=== PATIENT | female | born 1935 | race Caucasian/White ===

== ENCOUNTER 2017-12-19 15:38 | Outpatient (CLI) | payer MEDICARE, BC | END 2017-12-19 15:39 | disposition home or self-care (01) | LOC: BICRAD 15:38 | PROVIDERS: ATTEND Internal Medicine | DX: R06.00 Dyspnea, unspecified (principal) | CPT/HCPCS: 71046 ==

== ENCOUNTER 2018-01-08 10:11 | Outpatient (CLI) | payer MEDICARE, BC ==
[2018-01-08 10:49] LABS: Estimated GFR-MDRD - POC Greater than 90
[2018-01-08] MEDS ORDERED: ISOVUE-370 76%-LOCM 1 ML ONE (15:12)
== END 2018-01-08 10:12 | disposition home or self-care (01) ==
LOC: BICCT 10:11
PROVIDERS: ATTEND Internal Medicine
DX: D50.9 Iron deficiency anemia, unspecified (principal); R06.00 Dyspnea, unspecified; R63.4 Abnormal weight loss; I25.10 Atherosclerotic heart disease of native coronary artery without angina pectoris; K44.9 Diaphragmatic hernia without obstruction or gangrene; K76.9 Liver disease, unspecified
CPT/HCPCS: 71260; 82565

== ENCOUNTER 2018-01-17 08:30 | Outpatient (CLI) | payer MEDICARE, BC ==
[~2018-01-17 08:30] MED LIST: ISOVUE-370 76%-LOCM 1 ML ONE
== END 2018-01-17 08:31 | disposition home or self-care (01) ==
LOC: BICCT 08:30
PROVIDERS: ATTEND Internal Medicine
DX: R16.0 Hepatomegaly, not elsewhere classified (principal); K57.30 Diverticulosis of large intestine without perforation or abscess without bleeding
CPT/HCPCS: 74178

== ENCOUNTER 2023-11-26 23:07 | Emergency (ER) | payer MEDICARE, BC ==
[2023-11-26] MEDS ORDERED: Acetaminophen 325 MG TAB ONE (23:23)
== END 2023-11-27 00:50 | disposition home or self-care (01) ==
LOC: ERS 23:07
DX: R51.9 Headache, unspecified (principal); I10 Essential (primary) hypertension; E11.9 Type 2 diabetes mellitus without complications; K21.9 Gastro-esophageal reflux disease without esophagitis; I48.91 Unspecified atrial fibrillation; Z79.01 Long term (current) use of anticoagulants; Z79.84 Long term (current) use of oral hypoglycemic drugs; Z79.899 Other long term (current) drug therapy; W19.XXXA Unspecified fall, initial encounter
CPT/HCPCS: 70450; 72125; 93005